=== PATIENT | female | born 1995 | race Caucasian/White ===

== ENCOUNTER 2020-01-25 09:38 | Emergency (ER) | payer OTHER, SELFPAY ==
[2020-01-25 09:49] VITALS: BP 118/70; PULSE 104; RESP 18; O2SAT 99; BMI 20.7
--- NOTE | 2020-01-25 09:58 | HMH.EDUTC ---
[facility] [place] Clinical Impression: Acute bronchitis Qualifiers: Bronchitis organism: unspecified organism Qualified Code(s): J20.9 - Acute bronchitis, unspecified Sinusitis Qualifiers: Sinusitis location: unspecified location Chronicity: acute Recurrence: non-recurrent Qualified Code(s): J01.90 - Acute sinusitis, unspecified Disposition: Home, Self-Care Condition on Discharge: Good Instructions: Sinusitis, DI for Sinusitis Additional Instructions: Drink plenty of fluids. Take tylenol or ibuprofen for pain or fever. Take the medications as directed. Follow up with your regular doctor. GO TO THE ER FOR ANY WORSENING SYMPTOMS Prescriptions: Brompheniramine/Pseudoephed/Dm [Bromfed Dm Cough Syrup] 5 ml PO Q6HP PRN #240 syrup PRN Reason: Cough Transmission Status: Received by [facility] methylPREDNISolone [Medrol] 4 mg PO DIRECTED 6 Days #21 tab.ds.pk Transmission Status: Received by [facility] Azithromycin [Z-Chilango 250mg Tab*] 250 mg PO UD DOSE PK #6 tab Transmission Status: Received by [facility] Referrals: Provider,Referral, [Primary Care Provider] - Forms: Work/School Release Time of Disposition: 10:01 Medical Decision Making - Medical Records Medical records reviewed: No: I reviewed the patient's medical records. - Ras Inquiry Pt receiving controlled substance: No Vital Signs: 01/25/20 09:49 01/25/20 10:13 Temperature 98.4 F Temperature Source Oral Pulse Rate 104 H Pulse Rate [Radial] 104 H Respiratory Rate 18 18 Blood Pressure 118/70 Blood Pressure [Right Arm] 118/70 Blood Pressure Mean [Right Arm] 86 Blood Pressure Source Automatic Cuff Blood Pressure Source [Right Arm] Automatic Cuff Blood Pressure Position Sitting Blood Pressure Position [Right Arm] Sitting 02 Sat by Pulse Oximetry 99 Oxygen Delivery Method Room Air Room Air [facility] [place] - General Stated complaint: possible bronchitis Time Seen by Provider: 01/25/20 09:50 Mode of Arrival: Ambulatory Source of Information: Patient Limitations: No Limitations Description of Symptoms (Recalled from Triage Doc. by RN): possible bronchitis HEENT Symptoms (Recalled from RN notes): Yes Resp Symptoms (Recalled from RN notes): No Skin Symptoms (Recalled from RN notes): No MS Symptoms (Recalled from RN notes): No Functional Status (Recalled from RN notes): wnl - History of Present Illness Provider Complaint: She c/o having sinus pressure, head ache, sinus drainage and cough for the past 2 days. She denies any exposure to COVID-19. - Related Data Previous Rx's Medication Instructions Recorded Azithromycin [Z-Chilango 250mg Tab*] 250 mg PO UD DOSE PK #6 tab 01/25/20 Brompheniramine/Pseudoephed/Dm 5 ml PO Q6HP PRN #240 syrup 01/25/20 [Bromfed Dm Cough Syrup] methylPREDNISolone [Medrol] 4 mg PO DIRECTED 6 Days #21 01/25/20 tab.ds.pk Allergies Allergy/AdvReac Type Severity Reaction Status Date / Time No Known Allergies Allergy Verified 01/25/20 09:52 - Worker's Comp Is this a Worker's Comp case?: No [facility] History - Hepatitis A Screen Drug use history?: No High risk sexual behaviors?: No History of sexually transmitted infection?: No Currently employed?: No Childcare worker?: No Do you have indoor plumbing?: Yes Do you have electricity?: Yes Attestation statement:: This patient has been screened for Hepatitis A risk factors. I have reviewed the patient's past medical history: Yes - Social History Alcohol Intake: never Occupational Status: other ROS Obtained: Yes All systems reviewed & no additional complaints - Constitutional Constitutional: Denies chills, Denies fever(s), Reports poor appetite, Reports malaise - Eyes Eyes: Denies eye discharge - ENT Ears, Nose, Mouth, and Throat: Reports as per HPI - Cardiovascular Cardiovascular: Denies chest pain - Respiratory Respiratory: Yes chest congestion, Yes cough Physical Exam - Gene
[2020-01-25 10:13] VITALS: BP 118/70; PULSE 104; RESP 18; TEMP 36.9; O2SAT 99
== END 2020-01-25 10:14 | disposition home or self-care (01) ==
PROVIDERS: Emergency Provider Nurse Practitioner Family
DX: J20.9 Acute bronchitis, unspecified (principal); J01.90 Acute sinusitis, unspecified
CPT/HCPCS: 99201

== ENCOUNTER → 2020-03-08 10:58 | Outpatient (CLI) | payer OTHER, SELFPAY ==
[2020-03-08 11:38] LABS: Basophils % 0.5 % (0.1-2.0); Eosinophils # 0.4 K/mm3 (0.0-0.4); Eosinophils % 7.6 % (0.1-12.0); Hematocrit 31.5 % (37.0-47.0); Hemoglobin 9.7 g/dL (12.2-16.2); Lymphocytes # 1.2 K/mm3 (0.7-4.5); Lymphocytes % 25.9 % (10-50); Mean Corpuscular Hemoglobin 25.1 pg (27.0-31.2); Mean Corpuscular Volume 80.8 fl (81-99); Monocytes # 0.2 K/mm3 (0.1-1.0); Monocytes % 5.1 % (1.7-9.3); Neutrophils # 2.9 K/mm3 (1.8-7.8); Platelet Count 304 K/mm3 (142-424); Red Blood Count 3.89 M/mm3 (4.20-5.40); Red Cell Distribution Width 15.2 % (11.5-17.5); White Blood Count 4.7 K/mm3 (4.8-10.8)
[2020-03-08 12:26] LABS: HCG,Quantitative 10029 mIU/ml (0-5.42)
[2020-03-09 15:54] LABS: HIV Screen 4th Generation wRfx Non Reactive (Non Reactive); Hepatitis B Surface Antigen Negative (Negative); Hepatitis C Antibody <0.1 s/co ratio (0.0-0.9); Rapid Plasma Reagin Ab Titer Non Reactive (NonRea<1:1); Rubella Antibodies, IgG 1.56 index (Immune >0.99)
== END ==
PROVIDERS: Visit Provider Obstetrics & Gynecology
DX: Z01.419 Encounter for gynecological examination (general) (routine) without abnormal findings (principal); N92.6 Irregular menstruation, unspecified
CPT/HCPCS: 36415; 84702; 85025; 86592; 86703; 86762; 86850; 87340; 87380; G0432

== ENCOUNTER 2020-09-16 15:32 | Emergency (ER) | payer OTHER, SELFPAY ==
[2020-09-16 15:45] VITALS: BP 154/83; PULSE 84; RESP 20; TEMP 36.8; O2SAT 100; BMI 24.7
[2020-09-16 16:02] VITALS: BP 154/83; PULSE 84; RESP 20; TEMP 36.8; O2SAT 100
--- NOTE | 2020-09-16 16:08 | HMH.EDUTC ---
[facility] Disposition Clinical Impression: Breast tenderness in female Disposition: Home, Self-Care Condition on Discharge: Good Instructions: How to Perform a Breast Self-examination, Breast Self-exam (BSE) Additional Instructions: follow up with pcp monitor temp monitor for redness if symptoms worsen return or be seen in ed Prescriptions: predniSONE [Prednisone 20mg Tab] 20 mg PO BID #10 tab Transmission Status: Pending to [place] [id number] Referrals: Provider,Referral, [Primary Care Provider] - Time of Disposition: 16:18 Medical Decision Making - Ras Inquiry Pt receiving controlled substance: No Vital Signs: 09/16/20 15:45 09/16/20 16:02 Temperature 98.3 F 98.3 F Temperature Source Oral Pulse Rate 84 Pulse Rate [Left] 84 Respiratory Rate 20 20 Blood Pressure 154/83 H Blood Pressure [Right Arm] 154/83 H Blood Pressure Mean [Right Arm] 106 02 Sat by Pulse Oximetry 100 [facility] HPI - General Chief complaint: Urgent Treatment Center Stated complaint: pain under both breast Time Seen by Provider: 09/16/20 16:08 Mode of Arrival: Ambulatory Source of Information: Patient Limitations: No Limitations Description of Symptoms (Recalled from Triage Doc. by RN): Pt states that she has bilateral breast pain since her period about 2 weeks ago HEENT Symptoms (Recalled from RN notes): No Resp Symptoms (Recalled from RN notes): No Skin Symptoms (Recalled from RN notes): No MS Symptoms (Recalled from RN notes): Yes Functional Status (Recalled from RN notes): wnl - History of Present Illness Provider Complaint: 24 yr old female presents for bilateral breast pain since her period about 2 weeks ago. pt states breast pain has been there before but last 2 weeks pain has increased. no redness or discharge - Related Data Home Medications Medication Instructions Recorded Confirmed cetirizine 10 mg capsule 10 mg PO DAILY 03/08/20 Previous Rx's Medication Instructions Recorded ferrous sulfate 142 mg (45 mg 142 mg PO DAILY #90 tab 03/11/20 iron) tablet,extended release predniSONE [Prednisone 20mg 20 mg PO BID #10 tab 09/16/20 Tab] Allergies Allergy/AdvReac Type Severity Reaction Status Date / Time No Known Allergies Allergy Verified 09/16/20 16:01 - Worker's Comp Is this a Worker's Comp case?: No [facility] History - Hepatitis A Screen Drug use history?: No High risk sexual behaviors?: No History of sexually transmitted infection?: No Currently employed?: No Childcare worker?: No Do you have indoor plumbing?: Yes Do you have electricity?: Yes Attestation statement:: This patient has been screened for Hepatitis A risk factors. I have reviewed the patient's past medical history: Yes Amputation: No Fractures: No - Social History Smoking Status: Never smoker Alcohol Intake: never Substance Use Type: denies use Occupational Status: other Family Hx:: Cancer, Diabetes, Heart Attack, Coronary Artery Disease, Hypertension, Hyperlipidemia, Asthma ROS Obtained: Yes Systems reviewed as appropriate & no additional complaints - Constitutional Constitutional: Reports system reviewed and no additional complaints, except as docu, Denies chills, Denies fatigue, Denies fever(s) - Eyes Eyes: Reports system reviewed and no additional complaints, except as docu, Denies blurry vision - ENT Ears, Nose, Mouth, and Throat: Reports system reviewed and no additional complaints, except as docu, Denies sore throat - Cardiovascular Cardiovascular: Reports system reviewed and no additional complaints, except as docu, Denies chest pain at rest - Respiratory Respiratory: Reports system reviewed and no additional complaints, except as docu, Denies change in phlegm color - Gastrointestinal Gastrointestingal: Reports: system reviewed and no additional complaints, except as docu. Denies: diarrhea - Genitourinary Female Genitourinary: Reports system reviewed and no additional complaint
[2020-09-16 18:17] LABS: UTC Pregnancy Test, Urine Negative (Negative)
== END 2020-09-16 16:19 | disposition home or self-care (01) ==
PROVIDERS: Emergency Provider Nurse Practitioner Family
DX: N64.4 Mastodynia (principal)
CPT/HCPCS: 81025; 99202; G0463

== ENCOUNTER → 2020-09-29 14:22 | Outpatient (CLI) | payer OTHER, SELFPAY ==
[2020-09-29 14:35] LABS: Basophils % 0.3 % (0.1-2.0); Eosinophils # 0.1 K/mm3 (0.0-0.4); Eosinophils % 1.4 % (0.1-12.0); Hematocrit 37.9 % (37.0-47.0); Hemoglobin 12.4 g/dL (12.2-16.2); Lymphocytes # 1.7 K/mm3 (0.7-4.5); Mean Corpuscular HGB Conc 32.8 g/dL (31.8-35.4); Mean Corpuscular Hemoglobin 30.1 pg (27.0-31.2); Mean Corpuscular Volume 91.6 fl (81-99); Mean Platelet Volume 7.9 fl (7.4-10.4); Monocytes # 0.3 K/mm3 (0.1-1.0); Monocytes % 5.4 % (1.7-9.3); Platelet Count 299 K/mm3 (142-424); Red Blood Count 4.14 M/mm3 (4.20-5.40); Red Cell Distribution Width 12.5 % (11.5-17.5); White Blood Count 6.2 K/mm3 (4.8-10.8)
[2020-09-29 14:45] LABS: Alanine Aminotransferase 19 U/L (12-78); Albumin Level 4.4 g/dl (3.5-5.0); Albumin/Globulin Ratio 1.6 (1.1-1.8); Alkaline Phosphatase 48 U/L (38-126); Anion Gap 10.3 mEq/L (5-15); Aspartate Amino Transferase 23 U/L (14-36); Bilirubin,Total 0.5 mg/dl (0.2-1.3); Blood Urea Nitrogen 12 mg/dl (7-17); Carbon Dioxide 27 mmol/L (22.0-30.0); Chloride 102 mmol/L (98-107); Estimated Glomerular Filt Rate 122 ml/min (>60); GFR (African American) 147 ML/MIN (>60); Globulin 2.8 g/dL (1.3-3.2); Glucose 84 mg/dl (74-100); Potassium 4.3 mmoL/L (3.5-5.1); Sodium 135 mmol/L (136-145); Total Protein,Serum 7.2 g/dl (6.3-8.2)
[2020-09-29 15:02] LABS: 25-OH Vitamin D, Total 76.5 ng/mL (30-100)
[2020-09-29 15:03] LABS: T4 (Thyroxine) 10.5 ug/dl (5.53-11.0)
[2020-09-29 15:17] LABS: Thyroid Stimulating Hormone 0.91 uIU/mL (0.465-4.68)
[2020-09-29 15:35] LABS: Vitamin B12 200 pg/mL (239-931)
[2020-10-01 13:09] LABS: Prolactin 12.5 ng/mL (4.8-23.3)
== END ==
PROVIDERS: Visit Provider Nurse Practitioner Family
DX: E04.9 Nontoxic goiter, unspecified (principal); N64.4 Mastodynia; Z68.24 Body mass index [BMI] 24.0-24.9, adult
CPT/HCPCS: 80053; 82306; 82607; 83970; 84146; 84436; 84443; 85025

== ENCOUNTER 2022-10-02 08:33 | Emergency (ER) | payer MEDICAID, SELFPAY ==
[2022-10-02 08:34] VITALS: BP 141/94; PULSE 113; RESP 16; TEMP 36.9; O2SAT 100; BMI 25.1
--- NOTE | 2022-10-02 09:09 | EXP.UTC ---
Discharge Plan Disposition Patient Disposition: Home, Self-Care Prescriptions Prescriptions: No Action cholecalciferol (vitamin D3) 10 mcg (400 unit) capsule 10 mcg PO DAILY vitamin E 200 unit capsule 200 unit PO DAILY ascorbic acid (vitamin C) 500 mg capsule PO dicyclomine 10 mg capsule 10 mg PO TID Qty: 90 2RF albuterol sulfate [ProAir HFA] 90 mcg/actuation HFA aerosol inhaler 2 puff INHALATION Brexafemme 150 mg tablet See Rx Instructions PO PER PKG DIR Qty: 4 0RF Rx Instructions: PO PER PKG DIR Slynd 4 mg (28) tablet 4 mg PO DAILY 24 Days Qty: 24 10RF fluconazole [Diflucan] 200 mg tablet 200 mg PO Q48H Qty: 14 3RF fluconazole 150 mg tablet 150 mg PO DAILY 30 Days Qty: 30 1RF Rx Instructions: may repeat second dose 72 hrs after first dose if symptoms persist gabapentin 300 mg capsule 300 mg PO HS Qty: 30 2RF Referrals Follow up/Referrals: Provider,Referral, MD [Primary Care Provider] - See instructions Activity Restrictions/Add. Instructions Additional Instructions/Restrictions: Drink plenty of fluids. Take tylenol or ibuprofen for pain or fever. Follow up with your regular doctor. GO TO THE ER FOR ANY WORSENING SYMPTOMS Clinical Impressions Clinical Impression: Acute viral syndrome Instructions Patient Instructions: DI for Viral Syndrome Discharge ED Provider: Aníbal Barr [facility] General Stated complaint: Sore throat swollen lymph nodes Time Seen by Provider: 10/02/22 09:15 History of Present Illness Provider Complaint: She states that for the past 2 days she has had left ear pain, sore throat, left sided neck tenderness, and sinus drainage. Related Data Home Medications Medication Instructions Recorded Confirmed ascorbic acid (vitamin C) 500 mg mg PO 03/20/21 05/14/22 capsule cholecalciferol (vitamin D3) 10 10 mcg PO DAILY 03/20/21 05/14/22 mcg (400 unit) capsule vitamin E 200 unit capsule 200 unit PO DAILY 03/20/21 05/14/22 albuterol sulfate 90 mcg/actuation 2 puff inhalation 08/24/21 05/14/22 aerosol inhaler (ProAir HFA) Previous Rx's Medication Instructions Recorded dicyclomine 10 mg capsule 10 mg PO TID #90 caps 03/20/21 ibrexafungerp 150 mg tablet See Rx Instructions PO PER PKG DIR 05/14/22 (Brexafemme) #4 tabs drospirenone (contraceptive) 4 mg 4 mg PO DAILY 24 days #24 tabs 05/23/22 (28) tablet (Slynd) fluconazole 200 mg tablet 200 mg PO Q48H #14 tabs 09/19/22 (Diflucan) fluconazole 150 mg tablet 150 mg PO DAILY 30 days #30 tabs 09/26/22 gabapentin 300 mg capsule 300 mg PO HS #30 caps 09/26/22 Allergies Allergy/AdvReac Type Severity Reaction Status Date / Time No Known Allergies Allergy Verified 05/14/22 15:05 PFSH PFSH Disclaimer: The information contained in this section may have been updated after the patient was seen, as this information can be updated by other users. Family History Other Asthma Cancer Heart attack Hyperlipidemia Hypertension Social History Smoking Status: Never smoker second hand exposure: No alcohol intake: current substance use type: denies use current occupational status: employed and other Travel in the last 8 weeks: None number of children: 0 ROS Obtained: Yes All systems reviewed & no additional complaints except as documented Constitutional Constitutional: Reports chills and Denies fever(s) Eyes Eyes: Denies eye discharge ENT Ears, Nose, Mouth, and Throat: Reports as per HPI Cardiovascular Cardiovascular: Denies chest pain Respiratory Respiratory: Denies chest congestion and Reports cough Gastrointestinal Gastrointestingal: Reports nausea; Denies abdominal pain, constipation, cramping, diarrhea or vomiting Musculoskeletal Musculoskeletal: Denies arthralgias Integumentary/Breasts Skin/Breast: Den
[2022-10-02 09:28] LABS: UTC Strep Screen (Rapid) Negative (Negative)
[2022-10-02 09:34] VITALS: BP 140/85; PULSE 102; RESP 16; TEMP 36.9; O2SAT 100
== END 2022-10-02 09:36 | disposition home or self-care (01) ==
PROVIDERS: Emergency Provider Nurse Practitioner Family
DX: H92.02 Otalgia, left ear (principal); R07.0 Pain in throat; B34.9 Viral infection, unspecified
CPT/HCPCS: 87880; 99212; 99213; G0463

== ENCOUNTER 2022-10-05 06:31 | Emergency (ER) | payer MEDICAID, SELFPAY ==
[2022-10-05 06:41] VITALS: BMI 25.1
[2022-10-05 06:43] VITALS: BP 132/80; PULSE 123; RESP 18; TEMP 36.4; O2SAT 100; BMI 25.1
--- NOTE | 2022-10-05 06:43 | CT_ITS ---
FINAL REPORT TECHNIQUE: Axial images through the abdomen and pelvis were performed without contrast. This study was performed with techniques to keep radiation doses as low as reasonably achievable, (ALARA). Individualized dose reduction techniques using automated exposure control or adjustment of mA and/or kV according to the patient's size were employed. CLINICAL HISTORY: lower abd pain FINDINGS: Abdomen: The lung bases are clear. The liver parenchyma is homogeneous. The gallbladder is contracted. The spleen, pancreas, adrenals and kidneys are unremarkable. Pelvis: A moderate amount of stool is seen throughout the colon. The urinary bladder is distended. The urinary bladder lies eccentric to the left. The appendix is not visualized. There is no pelvic mass or inflammation. IMPRESSION: Contracted gallbladder. Moderate stool throughout the colon. Reviewed, Interpreted and Dictated by Emeka Farris MD Transcribed by Linda Tineo Authenticated and [facility]
[2022-10-05 06:53] LABS: Microscopic, Urine URINE MICROSCOPIC (MICROSCOPIC)
[2022-10-05 06:56] LABS: Basophils % 0.3 % (0.1-2.0); Eosinophils # 0.2 K/mm3 (0.0-0.4); Eosinophils % 2.7 % (0.1-12.0); Hematocrit 36.8 % (37.0-47.0); Hemoglobin 11.8 g/dL (12.2-16.2); Lymphocytes # 3.1 K/mm3 (0.7-4.5); Lymphocytes % 34.5 % (10-50); Mean Corpuscular HGB Conc 32.2 g/dL (31.8-35.4); Mean Corpuscular Hemoglobin 28.8 pg (27.0-31.2); Mean Corpuscular Volume 89.5 fl (81-99); Mean Platelet Volume 7.6 fl (7.4-10.4); Monocytes # 0.4 K/mm3 (0.1-1.0); Neutrophils # 5.1 K/mm3 (1.8-7.8); Neutrophils % 57.5 % (37.0-80.0); Platelet Count 333 K/mm3 (142-424); Red Blood Count 4.11 M/mm3 (4.20-5.40); Red Cell Distribution Width 12.8 % (11.5-17.5); White Blood Count 8.9 K/mm3 (4.8-10.8)
[2022-10-05 06:57] LABS: Urine Pregnancy, HCG Qual. Negative (Negative)
[2022-10-05 07:00] VITALS: BP 113/73; PULSE 98; O2SAT 100
[2022-10-05 07:00] LABS: Appearance,Urine CLEAR (Clear); Bilirubin,Urine Negative (Negative); Blood, Urine 2+ (Negative); Color,Urine YELLOW (Yellow); Glucose,Urine (UA) Negative (Negative); Ketones,Urine Negative (Negative); Leukocyte Esterase,Urine 2+ (Negative); Nitrate,Urine Negative (Negative); Protein,Urine 1+ (Negative); Specific Gravity, Urine 1.015 (1.005-1.030); Urobilinogen,Urine 0.2 EU/dl (0.2)
[2022-10-05 07:01] LABS: Lactic Acid 1.1 mmol/L (0.7-2.1); Lipase 44 U/L (23-300)
[2022-10-05 07:07] LABS: Alanine Aminotransferase 22 U/L (12-78); Albumin Level 4.1 g/dl (3.5-5.0); Albumin/Globulin Ratio 1.5 (1.1-1.8); Alkaline Phosphatase 51 U/L (38-126); Amylase 58 U/L (30-110); Anion Gap 15.4 mEq/L (5-15); Aspartate Amino Transferase 27 U/L (14-36); Bilirubin,Total 0.3 mg/dl (0.2-1.3); Blood Urea Nitrogen 3 mg/dl (7-17); Calcium 9.7 mg/dl (8.4-10.2); Carbon Dioxide 25 mmol/L (22.0-30.0); Chloride 107 mmol/L (98-107); Creatinine Clearance Estimated 147 mL/min (50-200); Estimated Glomerular Filt Rate 100 ml/min (>60); GFR (African American) 121 ML/MIN (>60); Globulin 2.7 g/dL (1.3-3.2); Glucose 103 mg/dl (74-100); Potassium 3.4 mmoL/L (3.5-5.1); Sodium 144 mmol/L (136-145); Total Protein,Serum 6.8 g/dl (6.3-8.2)
[2022-10-05 07:09] LABS: Bacteria,Urine 1+ /lpf
[2022-10-05 07:12] LABS: C-Reactive Protein 1.4 mg/L (0-4)
--- NOTE | 2022-10-05 07:17 | PC.NURSE ---
pt back to room from scan via wheelchair
--- NOTE | 2022-10-05 07:22 | PC.NURSE ---
brought pt warm blanket
--- NOTE | 2022-10-05 07:23 | HMH.EDUROGF ---
Discharge Plan Disposition Patient Disposition: Home, Self-Care Prescriptions Prescriptions: New levofloxacin 500 mg tablet 500 mg PO DAILY Qty: 7 0RF phenazopyridine [Pyridium] 200 mg tablet 200 mg PO Q8H PRN (Reason: pain) Qty: 7 0RF No Action fluconazole 150 mg tablet 150 mg PO DAILY Rx Instructions: may repeat second dose 72 hrs after first dose if symptoms persist gabapentin 300 mg capsule 300 mg PO HS Slynd 4 mg (28) tablet 4 mg PO DAILY Referrals Follow up/Referrals: Hang Bloom MD [Staff Physician] - See instructions Provider,Jacobo, [Primary Care Provider] - See instructions Clinical Impressions Clinical Impression: Urinary tract infection, Acute urinary retention Instructions Patient Instructions: DI for Urinary Tract Infection (UTI), How to Care for Your Ley Catheter -- Female Discharge ED Provider: Eusebio (ED)Valentino Female Urogenital HPI General Chief complaint: Urogenital-Female Stated complaint: Lower abd/back pain, slow urination Time Seen by Provider: 10/05/22 07:00 Mode of Arrival: Ambulatory Source of Information: Patient, Significant Other and Medical Record Limitations: No Limitations Description of Symptoms (Recalled from ER Triage Doc. by RN): pt reports lower to middle back pain and a swollen feelin along with painful urination and urgency. pt also reports vaginal pain and frequant utis History of Present Illness HPI Narrative: lower abd pain with diff urinating and has urgency - no fever or vaginal d/c Complaint: dysuria Onset (ago): day(s) Location: suprapubic Severity: moderate Associated symptoms: denies other symptoms Related Data Home Medications Medication Instructions Recorded Confirmed drospirenone (contraceptive) 4 mg 4 mg PO DAILY control 10/05/22 10/05/22 (28) tablet (Slynd) fluconazole 150 mg tablet 150 mg PO DAILY Infection 10/05/22 10/05/22 gabapentin 300 mg capsule 300 mg PO HS Pain 10/05/22 10/05/22 Previous Rx's Medication Instructions Recorded levofloxacin 500 mg tablet 500 mg PO DAILY #7 tabs 10/05/22 phenazopyridine 200 mg tablet 200 mg PO Q8H PRN pain 6 doses #7 10/05/22 (Pyridium) tabs Allergies Allergy/AdvReac Type Severity Reaction Status Date / Time No Known Allergies Allergy Verified 05/14/22 15:05 PFSH PFSH Disclaimer: The information contained in this section may have been updated after the patient was seen, as this information can be updated by other users. Family History Other Asthma Cancer Heart attack Hyperlipidemia Hypertension Social History Smoking Status: Former smoker second hand exposure: No alcohol intake: current substance use type: denies use current occupational status: employed and other Travel in the last 8 weeks: None number of children: 0 ROS Obtained: Yes All systems reviewed & no additional complaints except as documented Physical Exam General General appearance: alert Head Head exam: normocephalic Eye Eye exam: Present PERRL and EOMI ENT ENT exam: Present mucous membranes moist Neck Neck exam: Present trachea midline Respiratory Respiratory exam: Present normal lung sounds bilaterally; Absent respiratory distress Cardiovascular Cardiovascular exam: Present regular rate Abdominal Exam Abdominal exam: Present soft and tenderness; Absent guarding or rebound External exam: Present normal external exam Extremities Exam Extremities exam: Present full ROM Neurological Exam Neurological exam: Present alert, oriented X3 and CN II-XII intact; Absent motor sensory deficit Psychiatric Psychiatric exam: Present normal affect Skin Skin exam: Absent rash Medical Decision Making Medical Records Medical records reviewed: Yes I reviewed the patient's medical records. Ras Inquiry Pt receiving controlled substance:
[2022-10-05 07:24] LABS: Procalcitonin 0.038 ng/mL (0.0-2.0)
--- NOTE | 2022-10-05 07:28 | PC.NURSE ---
d/t full bladder on CT and pt's clinical presentation of urgency, md requests placement of matos
[2022-10-05 07:29] LABS: Erythrocyte Sedimentation Rate 16 mm/hr (0-20)
--- NOTE | 2022-10-05 07:44 | PC.NURSE ---
dr langston paged at this time
--- NOTE | 2022-10-05 07:57 | PC.NURSE ---
and RN @ [facility]
[2022-10-05 08:00] VITALS: BP 105/67; PULSE 96; O2SAT 100
[2022-10-05 09:24] VITALS: BP 105/67; PULSE 96; RESP 16; TEMP 36.4
== END 2022-10-05 09:27 | disposition home or self-care (01) ==
PROVIDERS: Emergency Provider Emergency Medicine
DX: N39.0 Urinary tract infection, site not specified (principal); Z87.891 Personal history of nicotine dependence
CPT/HCPCS: 51702; 74176; 80053; 81001; 81025; 82150; 83605; 83690; 84145; 85025; 85651; 86140; 87086; 96361; 96374; 99284; 99285; J0696

== ENCOUNTER 2022-10-07 09:44 | Emergency (ER) | payer MEDICAID, SELFPAY ==
[2022-10-07 09:58] VITALS: BP 146/92; PULSE 115; RESP 18; TEMP 36.8; O2SAT 96; BMI 25.1
--- NOTE | 2022-10-07 10:01 | PC.NURSE ---
pt taken to the bathroom upon entering ED for urine sample. While in the restroom staff hears patient screaming, upon going to the bathroom to assist the patient and ask whats wrong pt states I don't want to see Dr. Kaplan. pt proceeds to take off her ID band. this nurse spoke with patient regarding her wishes of staying and seeing Dr. Kaplan or leaving. pt calmed and states she would see Dr. Kaplan.
--- NOTE | 2022-10-07 10:02 | PC.NURSE ---
post void bladder scan reveals less than 9 ML, pt non-tender during bladder scan.
[2022-10-07 10:06] LABS: Microscopic, Urine URINE MICROSCOPIC (MICROSCOPIC)
[2022-10-07 10:07] LABS: Appearance,Urine CLEAR (Clear); Bilirubin,Urine Negative (Negative); Blood, Urine Negative (Negative); Glucose,Urine (UA) TRACE (Negative); Ketones,Urine TRACE (Negative); Leukocyte Esterase,Urine Negative (Negative); Nitrate,Urine POSITIVE (Negative); Protein,Urine 1+ (Negative); Specific Gravity, Urine 1.015 (1.005-1.030)
[2022-10-07 10:10] LABS: Chloride 104 mmol/L (98-107); Sodium 141 mmol/L (136-145)
[2022-10-07 10:13] LABS: Alanine Aminotransferase 34 U/L (12-78); Albumin Level 4.3 g/dl (3.5-5.0); Albumin/Globulin Ratio 1.4 (1.1-1.8); Alkaline Phosphatase 44 U/L (38-126); Aspartate Amino Transferase 33 U/L (14-36); Basophils % 0.3 % (0.1-2.0); Bilirubin,Total 0.7 mg/dl (0.2-1.3); Blood Urea Nitrogen 2 mg/dl (7-17); Carbon Dioxide 25 mmol/L (22.0-30.0); Creatinine Clearance Estimated 147 mL/min (50-200); Eosinophils # 0.1 K/mm3 (0.0-0.4); Eosinophils % 2.1 % (0.1-12.0); Estimated Glomerular Filt Rate 100 ml/min (>60); GFR (African American) 121 ML/MIN (>60); Hematocrit 37.1 % (37.0-47.0); Hemoglobin 11.9 g/dL (12.2-16.2); Lymphocytes # 2.3 K/mm3 (0.7-4.5); Lymphocytes % 38.2 % (10-50); Mean Corpuscular HGB Conc 32.1 g/dL (31.8-35.4); Mean Corpuscular Hemoglobin 28.8 pg (27.0-31.2); Mean Corpuscular Volume 89.7 fl (81-99); Mean Platelet Volume 8.1 fl (7.4-10.4); Monocytes # 0.3 K/mm3 (0.1-1.0); Neutrophils # 3.3 K/mm3 (1.8-7.8); Neutrophils % 54.4 % (37.0-80.0); Platelet Count 331 K/mm3 (142-424); Red Blood Count 4.14 M/mm3 (4.20-5.40); Red Cell Distribution Width 12.9 % (11.5-17.5); Total Protein,Serum 7.3 g/dl (6.3-8.2); White Blood Count 6.1 K/mm3 (4.8-10.8)
[2022-10-07 10:14] LABS: Glucose 98 mg/dl (74-100)
--- NOTE | 2022-10-07 10:15 | PC.NURSE ---
Advised Charito Tan RN of K+ 3.0 per robert in lab
[2022-10-07 10:17] LABS: HCG Qualitative, Serum Negative (Negative)
[2022-10-07 10:18] LABS: Bacteria,Urine Trace /lpf; WBC,Urine Occasional #/hpf (0-3)
[2022-10-07 10:19] LABS: Color,Urine Orange (Yellow)
--- NOTE | 2022-10-07 10:20 | PC.NURSE ---
ER MD Kaplan at
--- NOTE | 2022-10-07 10:21 | PC.NURSE ---
Dr. Kaplan notified of pt's potassium-3.
--- NOTE | 2022-10-07 10:23 | HMH.EDABDPAI ---
Discharge Plan Disposition Patient Disposition: Home, Self-Care Chief Complaint: Abdominal Pain Prescriptions Prescriptions: No Action fluconazole 150 mg tablet 150 mg PO DAILY Rx Instructions: may repeat second dose 72 hrs after first dose if symptoms persist gabapentin 300 mg capsule 300 mg PO HS Slynd 4 mg (28) tablet 4 mg PO DAILY levofloxacin 500 mg tablet 500 mg PO DAILY Qty: 7 0RF phenazopyridine [Pyridium] 200 mg tablet 200 mg PO Q8H PRN (Reason: pain) Qty: 7 0RF Referrals Follow up/Referrals: Provider,Referral, MD [Primary Care Provider] - See instructions Clinical Impressions Clinical Impression: Abdominal pain Instructions Patient Instructions: DI for Acute Abdominal Pain Discharge ED Provider: Eusebio (ED)Valentino Abdominal Pain HPI General Chief Complaint: Abdominal Pain Stated Complaint: stomach pain,bloating,back pain Time Seen by Provider: 10/07/22 10:23 Mode of Arrival: Ambulatory Source of Information: Patient, Significant Other and Medical Record Limitations: No Limitations Description of Symptoms (Recalled from ER Triage Doc. by RN): pt presents to ED c/o low back, low pelvic and left leg pain. pt states she was seen in the ED recently and diagnosed with an UTI. pt states she has been taking her antibiotics. pt reports she was initially sent home with a catheter and that it was removed on at 1730. pt reports urinating and have bowel movements. pt reports last bm was this am. pt voided upon entering ED. History of Present Illness HPI narrative: recent ed visit with urinary retention - pt with hx of ibs - no fever or vomiting - reports nl bladder and stool complaint: abdominal pain Onset (ago): day(s) Consistency: intermittent Location: diffuse Severity: moderate Associated symptoms: denies other symptoms Related Data Home Medications Medication Instructions Recorded Confirmed drospirenone (contraceptive) 4 mg 4 mg PO DAILY control 10/05/22 10/05/22 (28) tablet (Slynd) fluconazole 150 mg tablet 150 mg PO DAILY Infection 10/05/22 10/05/22 gabapentin 300 mg capsule 300 mg PO HS Pain 10/05/22 10/05/22 Previous Rx's Medication Instructions Recorded levofloxacin 500 mg tablet 500 mg PO DAILY #7 tabs 10/05/22 phenazopyridine 200 mg tablet 200 mg PO Q8H PRN pain 6 doses #7 10/05/22 (Pyridium) tabs Allergies Allergy/AdvReac Type Severity Reaction Status Date / Time No Known Allergies Allergy Verified 05/14/22 15:05 [facility] Disclaimer: The information contained in this section may have been updated after the patient was seen, as this information can be updated by other users. Family History Other Asthma Cancer Heart attack Hyperlipidemia Hypertension Social History Smoking Status: Never smoker second hand exposure: No alcohol intake: current substance use type: denies use current occupational status: employed and other Travel in the last 8 weeks: None number of children: 0 ROS Obtained: Yes All systems reviewed & no additional complaints except as documented Physical Exam General General appearance: alert Head Head exam: normocephalic Eye Eye exam: Present PERRL and EOMI ENT ENT exam: Present mucous membranes moist Neck Neck exam: Present trachea midline Respiratory Respiratory exam: Present normal lung sounds bilaterally; Absent respiratory distress Cardiovascular Cardiovascular exam: Present regular rate Abdominal Exam Abdominal exam: Present soft, tenderness and normal bowel sounds; Absent guarding or rebound Abdominal tenderness: Present epigastrium and mild Extremities Exam Extremities exam: Present full ROM Neurological Exam Neurological exam: Present alert, oriented X3 and CN II-XII intact; Absent motor sensory deficit Psychiatric Psychiatric exam: Present normal af
--- NOTE | 2022-10-07 10:25 | XR_ITS ---
PROCEDURE INFORMATION: Exam: XR Complete Acute Abdomen Series Including Chest Exam date and time: 10/07/2022 10:31 AM Age: 26 years old Clinical indication: Abdominal pain; Generalized; Additional info: Abd pain TECHNIQUE: Imaging protocol: Radiologic exam. Complete acute abdomen series, including 2 or more views of the abdomen and a single view chest. COMPARISON: CT ABDOMEN PELVIS WO CON 10/05/2022 7:14 AM FINDINGS: Lungs: No evidence of pneumonia or interstitial edema. Pleural spaces: Normal. No pleural effusions. No pneumothorax. Heart/Mediastinum: Normal. No cardiomegaly. Gastrointestinal tract: Moderate fecal burden noted throughout the colon. Otherwise, Unremarkable bowel gas pattern. Intraperitoneal space: No free air. Bones/joints: Mild dextroconvex curvature of the lumbar spine. No acute osseous abnormality. Soft tissues: Normal. IMPRESSION: 1. No evidence of pneumonia or interstitial edema. 2. Moderate fecal burden noted throughout the colon. Otherwise, Unremarkable bowel gas pattern.
[2022-10-07 10:30] VITALS: BP 102/66; PULSE 86; RESP 20; O2SAT 98
--- NOTE | 2022-10-07 10:34 | PC.NURSE ---
rad notified of xray order.
--- NOTE | 2022-10-07 10:46 | PC.NURSE ---
pt return from xray
[2022-10-07 10:56] VITALS: BP 105/75; PULSE 78; RESP 18; O2SAT 99
[2022-10-07 11:00] VITALS: BP 117/91; PULSE 81; RESP 20; O2SAT 100
[2022-10-07 12:26] VITALS: BP 114/81; PULSE 84; RESP 18; TEMP 36.8; O2SAT 98
== END 2022-10-07 12:26 | disposition home or self-care (01) ==
PROVIDERS: Emergency Provider Emergency Medicine
DX: R10.9 Unspecified abdominal pain (principal); R33.9 Retention of urine, unspecified; M79.605 Pain in left leg; K58.9 Irritable bowel syndrome, unspecified
CPT/HCPCS: 74021; 80053; 81001; 84703; 85025; 96361; 96374; 99284; 99285; J2405

== ENCOUNTER 2022-10-11 12:43 | Outpatient (CLI) | payer MEDICAID, SELFPAY ==
[2022-10-11 13:12] VITALS: BP 146/76; PULSE 93; RESP 18; O2SAT 100
[2022-10-11 14:00] VITALS: BP 130/72; PULSE 94
[2022-10-11 14:29] VITALS: BP 125/76; PULSE 91; O2SAT 100
== END 2022-10-11 14:29 | disposition home or self-care (01) ==
LOC: INF 12:43
PROVIDERS: Visit Provider Nurse Practitioner Obstetrics & Gynecology
DX: N76.1 Subacute and chronic vaginitis (principal); N94.19 Other specified dyspareunia
CPT/HCPCS: 96365

== ENCOUNTER 2022-10-12 12:45 | Outpatient (CLI) | payer MEDICAID, SELFPAY ==
[2022-10-12 14:15] VITALS: BP 124/67; PULSE 100; RESP 18; O2SAT 100
[2022-10-12 15:06] VITALS: BP 124/72; PULSE 96; RESP 18; TEMP 36.9; O2SAT 100
== END 2022-10-12 14:15 | disposition home or self-care (01) ==
LOC: INF 12:45
PROVIDERS: Visit Provider Nurse Practitioner Obstetrics & Gynecology
DX: N76.1 Subacute and chronic vaginitis (principal)
CPT/HCPCS: 96365

== ENCOUNTER → 2022-10-13 12:35 | Outpatient (CLI) | payer MEDICAID, SELFPAY ==
[2022-10-13 12:57] VITALS: BP 117/73; RESP 20; TEMP 36.7; O2SAT 98
== END ==
PROVIDERS: Visit Provider Nurse Practitioner Obstetrics & Gynecology
DX: N76.1 Subacute and chronic vaginitis (principal); N94.19 Other specified dyspareunia
CPT/HCPCS: 96365

== ENCOUNTER → 2022-10-14 12:40 | Outpatient (CLI) | payer MEDICAID, SELFPAY | PROVIDERS: Visit Provider Nurse Practitioner Obstetrics & Gynecology | DX: N76.1 Subacute and chronic vaginitis (principal); N94.19 Other specified dyspareunia | CPT/HCPCS: 96365 ==

== ENCOUNTER 2022-10-15 12:45 | Outpatient (CLI) | payer MEDICAID, SELFPAY ==
[2022-10-15 13:12] VITALS: BP 139/66; PULSE 101; RESP 18; TEMP 36.6; O2SAT 98
[2022-10-15 14:20] VITALS: BP 116/66; PULSE 101; RESP 18; O2SAT 99
== END 2022-10-15 14:20 | disposition home or self-care (01) ==
LOC: INF 12:45
PROVIDERS: Visit Provider Nurse Practitioner Obstetrics & Gynecology
DX: N76.1 Subacute and chronic vaginitis (principal); N94.19 Other specified dyspareunia
CPT/HCPCS: 96365

== ENCOUNTER 2022-10-16 12:43 | Outpatient (CLI) | payer MEDICAID, SELFPAY ==
[2022-10-16 12:58] VITALS: BP 124/74; PULSE 88; RESP 18; O2SAT 99
[2022-10-16 14:13] VITALS: BP 121/73; PULSE 87; RESP 18; O2SAT 100
== END 2022-10-16 14:14 | disposition home or self-care (01) ==
LOC: INF 12:43
PROVIDERS: Visit Provider Nurse Practitioner Obstetrics & Gynecology
DX: N76.1 Subacute and chronic vaginitis (principal); N94.19 Other specified dyspareunia
CPT/HCPCS: 96365

== ENCOUNTER 2022-10-17 12:56 | Outpatient (CLI) | payer MEDICAID, SELFPAY ==
[2022-10-17 13:10] VITALS: BP 113/72; PULSE 78; RESP 18; TEMP 37.3; O2SAT 100
[2022-10-17 14:18] VITALS: BP 145/86; PULSE 83; RESP 18; TEMP 37.2; O2SAT 100
== END 2022-10-17 14:18 | disposition home or self-care (01) ==
LOC: INF 12:56
PROVIDERS: Visit Provider Nurse Practitioner Obstetrics & Gynecology
DX: N76.1 Subacute and chronic vaginitis (principal); N94.19 Other specified dyspareunia
CPT/HCPCS: 96365

== ENCOUNTER 2022-10-18 12:46 | Outpatient (CLI) | payer MEDICAID, SELFPAY ==
[2022-10-18 13:11] VITALS: BP 112/64; PULSE 90; RESP 18; TEMP 36.8; O2SAT 100
[2022-10-18 13:45] VITALS: BP 113/70; PULSE 93; RESP 18; O2SAT 99
[2022-10-18 14:25] VITALS: BP 110/72; PULSE 88; RESP 18; O2SAT 99
== END 2022-10-18 14:25 | disposition home or self-care (01) ==
LOC: INF 12:46
PROVIDERS: Visit Provider Nurse Practitioner Obstetrics & Gynecology
DX: N76.1 Subacute and chronic vaginitis (principal); N94.19 Other specified dyspareunia
CPT/HCPCS: 96365

== ENCOUNTER 2022-10-19 12:38 | Outpatient (CLI) | payer MEDICAID, SELFPAY ==
[2022-10-19 13:10] VITALS: BP 112/72; PULSE 88; RESP 18; O2SAT 99
[2022-10-19 13:30] LABS: Alanine Aminotransferase 21 U/L (12-78); Albumin Level 4.3 g/dl (3.5-5.0); Alkaline Phosphatase 41 U/L (38-126); Aspartate Amino Transferase 34 U/L (14-36); Bilirubin,Indirect 0.3 mg/dL (0.0-0.9); Bilirubin,Total 0.3 mg/dl (0.2-1.3); Bilirubin,Unconjugated 0.3 mg/dL (0.0-1.1)
[2022-10-19 14:10] VITALS: BP 119/77; PULSE 97; RESP 18; TEMP 36.5; O2SAT 99
== END 2022-10-19 14:10 | disposition home or self-care (01) ==
LOC: INF 12:39
PROVIDERS: PCP Nurse Practitioner Obstetrics & Gynecology; Visit Provider Nurse Practitioner Obstetrics & Gynecology
DX: N76.1 Subacute and chronic vaginitis (principal); N94.19 Other specified dyspareunia
CPT/HCPCS: 80076; 96365

== ENCOUNTER 2022-10-20 12:33 | Outpatient (CLI) | payer MEDICAID, SELFPAY ==
[2022-10-20 12:41] VITALS: BMI 25.2
== END 2022-10-20 14:35 | disposition home or self-care (01) ==
LOC: INF 12:34
PROVIDERS: Visit Provider Nurse Practitioner Obstetrics & Gynecology
DX: N76.1 Subacute and chronic vaginitis (principal); N94.19 Other specified dyspareunia
CPT/HCPCS: 96365

== ENCOUNTER 2022-10-21 12:40 | Outpatient (CLI) | payer MEDICAID, SELFPAY ==
[2022-10-21 13:23] VITALS: BMI 25.2
== END 2022-10-21 14:15 | disposition home or self-care (01) ==
LOC: INF 12:41
PROVIDERS: Visit Provider Nurse Practitioner Obstetrics & Gynecology
DX: N76.1 Subacute and chronic vaginitis (principal); N94.19 Other specified dyspareunia
CPT/HCPCS: 96365

== ENCOUNTER 2022-10-22 12:44 | Outpatient (CLI) | payer MEDICAID, SELFPAY ==
[2022-10-22 13:02] VITALS: BP 115/74; PULSE 88; RESP 18; O2SAT 99
[2022-10-22 14:15] VITALS: BP 121/70; PULSE 87; O2SAT 99
== END 2022-10-22 14:15 | disposition home or self-care (01) ==
LOC: INF 12:45
PROVIDERS: Visit Provider Nurse Practitioner Obstetrics & Gynecology
DX: N76.1 Subacute and chronic vaginitis (principal); N94.19 Other specified dyspareunia; R10.2 Pelvic and perineal pain; L29.0 Pruritus ani; B37.31 Acute candidiasis of vulva and vagina
CPT/HCPCS: 96365

== ENCOUNTER 2022-10-23 12:41 | Outpatient (CLI) | payer MEDICAID, SELFPAY ==
[2022-10-23 13:08] VITALS: BP 124/84; PULSE 93; RESP 18; O2SAT 98
[2022-10-23 14:10] VITALS: BP 157/88; PULSE 108; RESP 18; O2SAT 98
== END 2022-10-23 14:20 | disposition home or self-care (01) ==
LOC: INF 12:41
PROVIDERS: Visit Provider Nurse Practitioner Obstetrics & Gynecology
DX: N76.1 Subacute and chronic vaginitis (principal); N94.19 Other specified dyspareunia
CPT/HCPCS: 96365

== ENCOUNTER 2022-10-24 12:43 | Outpatient (CLI) | payer MEDICAID, SELFPAY ==
[2022-10-24 13:15] VITALS: BP 124/70; PULSE 87; RESP 18; O2SAT 100
[2022-10-24 14:15] VITALS: BP 123/71; PULSE 81
== END 2022-10-24 14:15 | disposition home or self-care (01) ==
LOC: INF 12:43
PROVIDERS: Visit Provider Nurse Practitioner Obstetrics & Gynecology
DX: R10.2 Pelvic and perineal pain (principal); N76.1 Subacute and chronic vaginitis; N94.19 Other specified dyspareunia; B37.31 Acute candidiasis of vulva and vagina; L29.0 Pruritus ani
CPT/HCPCS: 96365

== ENCOUNTER 2022-10-25 10:53 | Outpatient (CLI) | payer MEDICAID, SELFPAY ==
[2022-10-25 11:18] VITALS: BP 136/72; PULSE 86; RESP 18; TEMP 36.7; O2SAT 97
[2022-10-25 11:22] LABS: Basophils % 0.2 % (0.1-2.0); Eosinophils # 0.2 K/mm3 (0.0-0.4); Eosinophils % 3.9 % (0.1-12.0); Hematocrit 38.5 % (37.0-47.0); Hemoglobin 12.2 g/dL (12.2-16.2); Lymphocytes # 1.8 K/mm3 (0.7-4.5); Mean Corpuscular HGB Conc 31.6 g/dL (31.8-35.4); Mean Corpuscular Hemoglobin 28.2 pg (27.0-31.2); Mean Corpuscular Volume 89.4 fl (81-99); Mean Platelet Volume 8.4 fl (7.4-10.4); Monocytes # 0.2 K/mm3 (0.1-1.0); Monocytes % 5.3 % (1.7-9.3); Neutrophils # 2.3 K/mm3 (1.8-7.8); Neutrophils % 50.6 % (37.0-80.0); Platelet Count 285 K/mm3 (142-424); Red Blood Count 4.31 M/mm3 (4.20-5.40); Red Cell Distribution Width 13.3 % (11.5-17.5); White Blood Count 4.5 K/mm3 (4.8-10.8)
[2022-10-25 11:24] LABS: Chloride 107 mmol/L (98-107); Potassium 3.7 mmoL/L (3.5-5.1); Sodium 140 mmol/L (136-145)
[2022-10-25 11:27] LABS: Alanine Aminotransferase 21 U/L (12-78); Albumin Level 4.1 g/dl (3.5-5.0); Albumin/Globulin Ratio 1.6 (1.1-1.8); Alkaline Phosphatase 36 U/L (38-126); Anion Gap 12.7 mEq/L (5-15); Aspartate Amino Transferase 27 U/L (14-36); Bilirubin,Total 0.4 mg/dl (0.2-1.3); Blood Urea Nitrogen 6 mg/dl (7-17); Carbon Dioxide 24 mmol/L (22.0-30.0); Estimated Glomerular Filt Rate 120 ml/min (>60); GFR (African American) 145 ML/MIN (>60); Globulin 2.5 g/dL (1.3-3.2); Total Protein,Serum 6.6 g/dl (6.3-8.2)
[2022-10-25 11:28] LABS: Calcium 8.7 mg/dl (8.4-10.2); Glucose 96 mg/dl (74-100)
[2022-10-25 11:58] LABS: Thyroid Stimulating Hormone 0.85 uIU/mL (0.465-4.68)
[2022-10-25 12:03] LABS: Hemoglobin A1C 4.5 % (4.0-6.0)
[2022-10-25 12:20] VITALS: BP 135/73; PULSE 79; RESP 18; O2SAT 98
== END 2022-10-25 12:20 | disposition home or self-care (01) ==
LOC: LAB 10:53 → INF 10:54
PROVIDERS: Visit Provider Obstetrics & Gynecology
DX: R10.2 Pelvic and perineal pain (principal); N94.19 Other specified dyspareunia; B37.31 Acute candidiasis of vulva and vagina; L29.0 Pruritus ani; N76.0 Acute vaginitis
CPT/HCPCS: 80053; 83036; 84443; 85025; 96365

== ENCOUNTER 2022-11-19 13:11 | Emergency (ER) | payer MEDICAID, SELFPAY ==
[2022-11-19 13:20] VITALS: BP 131/80; PULSE 89; RESP 20; TEMP 36.8; O2SAT 98; BMI 20.8
--- NOTE | 2022-11-19 13:40 | EXP.UTC ---
Discharge Plan Disposition Patient Disposition: Home, Self-Care Condition: Good Prescriptions Prescriptions: New valacyclovir 1 gram tablet 1,000 mg PO Q8H 7 Days Qty: 21 0RF methylprednisolone [Medrol ([place])] 4 mg tablets,dose pack See Rx Instructions .Route .COMPLEX 6 Days Qty: 21 0RF Rx Instructions: taper pack; No Action diazepam 5 mg tablet 10 mg PO BIDP PRN (Reason: Anxiety) Slynd 4 mg (28) tablet 4 mg PO DAILY Referrals Follow up/Referrals: Provider,Referral, MD [Primary Care Provider] - See instructions Activity Restrictions/Add. Instructions Additional Instructions/Restrictions: Take medication as prescribed FOllow up with your Family Doctor if no improvement or any worsening of symptoms Return if needed Straight to ER if any life threatening symptoms Clinical Impressions Clinical Impression: Shingles Qualifiers: Herpes zoster complications: without complications Qualified Code(s): B02.9 - Zoster without complications Instructions Patient Instructions: DI for Shingles, Shingles, Valacyclovir Discharge ED Provider: Jaye Arnold [facility] General Stated complaint: rash all over Mode of Arrival: Ambulatory Source of Information: Patient Limitations: No Limitations Time Seen by Provider: 11/19/22 13:35 Description of Symptoms (Recalled from Triage Doc. by RN): PATIENT C/O ITCHY, RAISED RASH ALL OVER X 4 DAYS HEENT Symptoms (Recalled from RN notes): No Resp Symptoms (Recalled from RN notes): No Skin Symptoms (Recalled from RN notes): Yes MS Symptoms (Recalled from RN notes): No Functional Status (Recalled from RN notes): WNL History of Present Illness Provider Complaint: Patient state that she has had a rash on her right side that started on her right side of her abdomen and it has spread around her right side onto her back area States that rash itches, gomez and tender to the touch States that she has some other areas that is popping up on her legs, behind ear and on her arm but not sure if it is the same thing so she came in to get it checked Related Data Home Medications Medication Instructions Recorded Confirmed drospirenone (contraceptive) 4 mg 4 mg PO DAILY control 10/05/22 11/19/22 (28) tablet (Slynd) diazepam 5 mg tablet 10 mg PO BIDP PRN Anxiety 10/25/22 11/19/22 Previous Rx's Medication Instructions Recorded methylprednisolone 4 mg tablets in See Rx Instructions .Route 11/19/22 a dose pack (Medrol ([place])) .COMPLEX 6 days #21 tabs valacyclovir 1 gram tablet 1,000 mg PO Q8H 7 days #21 tabs 11/19/22 Allergies Allergy/AdvReac Type Severity Reaction Status Date / Time No Known Allergies Allergy Verified 10/08/22 10:47 Worker's Comp Is this a Worker's Comp case?: No PFSH PFS Disclaimer: The information contained in this section may have been updated after the patient was seen, as this information can be updated by other users. Medical History Anemia Anxiety IBS (irritable bowel syndrome) Personality disorder Rectal itching Recurrent candidiasis of vagina Vulvovaginal pain Surgical History No history of previous surgery Family History Other Asthma Cancer Heart attack Hyperlipidemia Hypertension Social History Smoking Status: Never smoker second hand exposure: No alcohol intake: current substance use type: denies use current occupational status: employed and other Travel in the last 8 weeks: None number of children: 0 ROS Obtained: Yes All systems reviewed & no additional complaints except as documented and Yes Systems reviewed as appropriate & no additional complaints except as documented Constitutional Constitutional: Reports system reviewed and no additional complaints, except a
[2022-11-19 13:49] VITALS: BP 131/80; PULSE 89; RESP 20; TEMP 36.8; O2SAT 98
== END 2022-11-19 13:53 | disposition home or self-care (01) ==
PROVIDERS: Emergency Provider Nurse Practitioner
DX: B02.8 Zoster with other complications (principal); F41.9 Anxiety disorder, unspecified; R21 Rash and other nonspecific skin eruption; D64.9 Anemia, unspecified
CPT/HCPCS: 99212; 99214; G0463

== ENCOUNTER 2023-04-14 01:12 | Emergency (ER) | payer MEDICAID, SELFPAY ==
[2023-04-14 01:13] VITALS: BP 140/90; PULSE 115; RESP 18; TEMP 36.9; O2SAT 99; BMI 19.2
[2023-04-14 01:20] VITALS: BP 140/90; PULSE 138; O2SAT 96
--- NOTE | 2023-04-14 01:36 | PC.NURSE ---
spoke with Parisa holloway about Tdap order unable to place correct order. pt recieved IM injection in Rt deltoid
--- NOTE | 2023-04-14 02:38 | HMH.EDGENADL ---
Discharge Plan Disposition Patient Disposition: Home, Self-Care Condition: Good Prescriptions Prescriptions: No Action diazepam 5 mg tablet 10 mg PO BIDP PRN (Reason: Anxiety) Slynd 4 mg (28) tablet See Rx Instructions .ROUTE .COMPLEX Qty: 28 10RF Dose Instruction: TAKE ONE TABLET BY MOUTH EVERY DAY Rx Instructions: TAKE ONE TABLET BY MOUTH EVERY DAY valacyclovir 1 gram tablet 1,000 mg PO Q8H 7 Days Qty: 21 0RF methylprednisolone [Medrol ([place])] 4 mg tablets,dose pack See Rx Instructions .Route .COMPLEX 6 Days Qty: 21 0RF Rx Instructions: taper pack; Referrals Follow up/Referrals: Provider,Referral, [Primary Care Provider] - See instructions Activity Restrictions/Add. Instructions Additional Instructions/Restrictions: You were evaluated in the emergency department today. Please keep your wounds clean and dry. Do not submerge under any water. Your sutures will need to be removed in 7 to 10 days. Please allow the glue on your hand to fall off on its own. Return to the emergency department for new or worsening symptoms, such as signs of infection including redness, warmth, significant increasing pain, pus draining from the wounds, or other concerns. Follow-up with your primary care provider for wound reassessment. Clinical Impressions Clinical Impression: Laceration of multiple sites of right hand and fingers Qualifiers: Encounter type: initial encounter Qualified Code(s): S61.411A - Laceration without foreign body of right hand, initial encounter Instructions Patient Instructions: DI for Laceration Repair Discharge ED Provider: Sasha Anguiano General Adult HPI General Chief complaint: Wound/Laceration Stated complaint: left hand laceration Time Seen by Provider: 04/14/23 01:24 Mode of Arrival: Ambulatory Source of Information: Patient Limitations: No Limitations Description of Symptoms (Recalled from ER Triage Doc. by RN): pt states wax warmer fell. pt has laceration to lt middle and ring finger History of Present Illness HPI narrative: This patient is a 27-year-old [id number] female who denies significant past medical history presenting to the emergency department for evaluation with concern for lacerations to the right hand. Patient reports that a wax warmer exploded and cut her on multiple sites of her right hand. She denies any numbness, tingling, or limitations of mobility, but she notes multiple wounds, worse to her right middle and index finger. She is unsure when her last tetanus shot was. Related Data Home Medications Medication Instructions Recorded Confirmed diazepam 5 mg tablet 10 mg PO BIDP PRN Anxiety 10/25/22 11/19/22 Previous Rx's Medication Instructions Recorded methylprednisolone 4 mg tablets in See Rx Instructions .Route 11/19/22 a dose pack (Medrol ([place])) .COMPLEX 6 days #21 tabs valacyclovir 1 gram tablet 1,000 mg PO Q8H 7 days #21 tabs 11/19/22 drospirenone (contraceptive) 4 mg See Rx Instructions .Route 12/31/22 (28) tablet (Slynd) .COMPLEX #28 tabs Allergies Allergy/AdvReac Type Severity Reaction Status Date / Time No Known Allergies Allergy Verified 10/08/22 10:47 [facility] Disclaimer: The information contained in this section may have been updated after the patient was seen, as this information can be updated by other users. Medical History Anemia Anxiety IBS (irritable bowel syndrome) Personality disorder Rectal itching Recurrent candidiasis of vagina Vulvovaginal pain Surgical History No history of previous surgery Family History Other Asthma Cancer Heart attack Hyperlipidemia Hypertension Social History Smoking Status: Never smoker second hand exposure: No alcohol int
[2023-04-14 02:52] VITALS: BP 121/73; PULSE 90; RESP 16; TEMP 36.9; O2SAT 99
== END 2023-04-14 02:53 | disposition home or self-care (01) ==
PROVIDERS: Emergency Provider Emergency Medicine
DX: S61.212A Laceration without foreign body of right middle finger without damage to nail, initial encounter (principal); S61.210A Laceration without foreign body of right index finger without damage to nail, initial encounter; W26.8XXA Contact with other sharp object(s), not elsewhere classified, initial encounter
CPT/HCPCS: 12002; 90471; 99283